=== PATIENT | male | born 1955 | race Caucasian/White ===

== ENCOUNTER 2018-04-03 11:23 | Inpatient (IN) | payer OTHER ==
[~2018-04-03] VITALS: Ht 190.5 cm; Wt 96.1 kg
[2018-04-03] MEDS ORDERED: DILTIAZEM BOLUS / DRIP IV STA (11:49)
[2018-04-03] MEDS ORDERED: SODIUM CHLORIDE 0.9% 1000ML 1,000 ML IV STA (11:49)
[2018-04-03 11:59] LABS: BASO % 0.4 %; BASO ABS # 0.05 K/uL (0-0.2); EOS % 1.9 %; EOS ABS # 0.22 K/uL (0-0.5); HEMATOCRIT 45.9 % (42-52); HEMOGLOBIN 16.6 g/dL (14.0-18.0); IG# 0.09 K/uL (0.00-0.02); LYMPH % 16.7 %; LYMPH ABS # 1.91 K/uL (1.2-3.4); MEAN CELL VOLUME 92.4 fL (80-100); MEAN CORPUSCULAR HEMOGLOBIN 33.4 pg (25-34); MEAN CORPUSCULAR HGB CONC 36.2 g/dl (32-36); MEAN PLATELET VOLUME 9.7 fL (7.4-10.4); MONO % 9.5 %; MONO ABS # 1.08 K/uL (0.11-0.59); NEUT % 70.7 %; NEUT ABS # 8.07 K/uL (1.4-6.5); PLATELET COUNT 296 K/uL (130-400); RED CELL DISTRIBUTION WIDTH CV 13.7 % (11.5-14.5); RED CELL DISTRIBUTION WIDTH SD 45.9 fL (36.4-46.3); WHITE BLOOD COUNT 11.42 K/uL (4.8-10.8)
[2018-04-03] MEDS ORDERED: DILTIAZEM BOLUS FROM BAG IV STA (12:00)
[2018-04-03] MEDS ORDERED: DILTIAZEM HCL INJ 125 MG in DEXTROSE 5% 100ML IV PRN (12:00)
[2018-04-03] MEDS ORDERED: GEMF600T5 PO ×2 (12:07)
[2018-04-03] MEDS ORDERED: NEBI10TA2 PO (12:07)
[2018-04-03] MEDS ORDERED: OXYC-594 PO (12:07)
--- NOTE | 2018-04-03 12:13 | DIAGNOSTIC IMAGING REPORT ---
CHEST ONE VIEW PORTABLE CLINICAL HISTORY: 62 years-old Male presenting with Chest Pain. TECHNIQUE: Portable upright AP view of the chest was obtained. COMPARISON: None. FINDINGS: Cardiomediastinal silhouette normal. Bandlike opacity in the left lung base. No other focal opacity. No large effusion. Lucency at the left apex with questionable pleural separation raises concern for pneumothorax. Degenerative changes of the thoracic spine. Upper abdomen normal. IMPRESSION: 1. Questionable small left apical pneumothorax. Dedicated PA and/or right lateral decubitus views could be obtained for confirmation as this may represent an overlapping rib shadow. 2. Left basilar atelectasis. Otherwise no convincing evidence of acute cardiopulmonary disease. The report will be called/faxed according to standard departmental protocol. Electronically signed by: Randy Leahy M.D. 04/03/2018 12:11 PM Dictated Date/Time: 04/03/2018 12:08 PM
[2018-04-03 12:24] LABS: CALCIUM 9.4 mg/dl (8.5-10.1); CKMB 1.2 ng/ml (0.5-3.6); CREATININE 1.18 mg/dl (0.60-1.40); POTASSIUM 4.1 mmol/L (3.5-5.1)
--- NOTE | 2018-04-03 13:30 | History and Physical ---
History & Physical Date & Time of Service: Apr 03, 2018 at 13:30 Chief Complaint: AFIB Primary Care Physician: No Doctor, Assigned History of Present Illness Source: patient, clinic records, hospital records Patient is a 62-year-old male with the PMH of paroxysmal A Fib, HTN, HLD and chronic back pain who presents with constant palpitations 4 days. Reports constant palpitations and rapid heart rate since last Tuesday. No lightheadedness, visual changes, near syncope, chest pain or shortness of breath. Has a remote history of A Fib and required cardioversion in 2003. Reports one other symptomatic episode of A Fib since then that spontaneously resolved. Is not on anticoagulation. Takes Bystolic for HTN. Denies history of heart disease, CVA or DVT/PE. Has 2-3 drinks a few days a week. No history of thyroid disease. Patient resides in both [place] and [place], and primary care provider is in [place]. Past Medical/Surgical History Medical Problems: (1) Chronic back pain Status: Chronic (2) HLD (hyperlipidemia) Status: Chronic (3) HTN (hypertension) Status: Chronic Surgical Problems: (1) History of appendectomy Status: Resolved (2) Hx of laminectomy Permanent Comment: H/o 4 laminectomies in the past at outside hospitals Status: Resolved Social History Smoking Status: Never Smoker Alcohol Use: socially (2-3 drinks a few times per week) Marital Status: Housing status: lives with significant other Occupational Status: employed Allergies Coded Allergies: No Known Allergies (Unverified , 04/03/18) Home Medications Scheduled Gemfibrozil (Lopid), 600 MG PO BID Nebivolol Hcl (Bystolic), 10 MG PO DAILY Scheduled PRN Oxycodone/Acetaminophen 10MG/325MG (Percocet 10MG/325MG), 1 TAB PO DAILY PRN for Pain Review of Systems Ten systems reviewed and negative except as noted in the HPI. Physical Exam Vital Signs Date Time Temp Pulse Resp B/P (MAP) Pulse Ox O2 Delivery O2 Flow Rate FiO2 04/03/18 13:16 100 20 126/83 99 Room Air 04/03/18 12:18 130 18 104/83 98 Room Air 04/03/18 11:42 145 04/03/18 11:37 Room Air 04/03/18 11:25 36.7 146 18 131/89 100 Room Air General Appearance: WD/WN, no apparent distress Head: normocephalic, atraumatic Eyes: normal inspection, PERRL, sclerae normal ENT: normal ENT inspection, hearing grossly normal, pharynx normal (mucous membranes moist) Neck: supple, thyroid normal, no JVD, trachea midline Respiratory/Chest: chest non-tender, lungs clear, normal breath sounds, no respiratory distress, no accessory muscle use Cardiovascular: no edema, no murmur, normal peripheral pulses, + tachycardia Abdomen/GI: non tender, soft, no organomegaly Extremities/Musculoskelatal: normal inspection, no calf tenderness, no pedal edema Neurologic/Psych: no motor/sensory deficits, alert, normal mood/affect, oriented x 3 Skin: normal color, warm/dry Diagnostics Laboratory Results Results Past 24 Hours Test 04/03/18 11:45 Range/Units White Blood Count 11.42 4.8-10.8 K/uL Red Blood Count 4.97 4.7-6.1 M/uL Hemoglobin 16.6 14.0-18.0 g/dL Hematocrit 45.9 42-52 % Mean Corpuscular Volume 92.4 80-100 fL Mean Corpuscular Hemoglobin 33.4 25-34 pg Mean Corpuscular Hemoglobin Concent 36.2 32-36 g/dl Platelet Count 296 130-400 K/uL Mean Platelet Volume 9.7 7.4-10.4 fL Neutrophils (%) (Auto) 70.7 % Lymphocytes (%) (Auto) 16.7 % Monocytes (%) (Auto) 9.5 % Eosinophils (%) (Auto) 1.9 % Basophils (%) (Auto) 0.4 % Neutrophils # (Auto) 8.07 1.4-6.5 K/uL Lymphocytes # (Auto) 1.91 1.2-3.4 K/uL Monocytes # (Auto) 1.08 0.11-0.59 K/uL Eosinophils # (Auto) 0.22 0-0.5 K/uL Basophils # (Auto) 0.05 0-0.2 K/uL RDW Standard Deviation 45.9 36.4-46.3 fL RDW Coefficient of Variation 13.7 11.5-14.5 % Immature Granulocyte % (Auto) 0.8 % Immature Granulocyte # (Auto) 0.09 0.00-0.02 K/uL Sodium Level 136 136-145 mmol/L Potassium Level 4.1 3.5-5.1 mmol/L Chloride Level 104 98-107 mmol/L Carbon Dioxide Level 24 21-32 mmol/L Anion Gap 8.0 3-11 mmol/L Blood Urea Nitrogen 14 7-18 mg/dl Creatinine 1.18 0.60-1.40 mg/dl Est Creatinine Clear Calc Drug Dose 78.6 ml/min Estimated GFR () 76.7 Estimated GFR (Non- 66.2 BUN/Creatinine Ratio 12.3 10-20 Random Glucose 101 70-99 mg/dl Calcium Level 9.4 8.5-10.1 mg/dl Total Creatine Kinase 52 39-308 U/L Creatine Kinase MB 1.2 0.5-3.6 ng/ml Creatine Kinase MB Ratio 2.3 0-3.0 Troponin I 0.016 0-0.045 ng/ml Diagnostic Radiology CXR (AP view) IMPRESSION: 1. Questionable small left apical pneumothorax. Dedicated PA and/or right lateral decubitus views could be obtained for confirmation as this may represent an overlapping rib shadow. 2. Left basilar atelectasis. Otherwise no convincing evidence of acute cardiopulmonary disease. CXR (decubitus views) IMPRESSION: 1. No pneumothorax. EKG Atrial flutter with 2:1 A-V conduction at 142 bpm. Impression Assessment and Plan Patient is a 62-year-old male with the PMH of paroxysmal A Fib, HTN, HLD and chronic back pain who presents with constant palpitations 4 days. A flutter with RVR -Palpitations but no lightheadedness, near syncope, SOB -EKG with A flutter with 2:1 AV conduction at 142 bpm -Given 10mg bolus of diltiazem in ED, started on diltiazem drip -HR initially improved to 100s but then returned to 140s -Heparin initiated for anticoagulation -Cardiology consulted -Lopressor 50mg PO given once -Lopressor 25mg PO scheduled Q6 -NPO after midnight in case NELLIE-guided cardioversion is indicated -Monitor on telemetry HTN -Normotensive -Hold home Bystolic while receiving scheduled Lopressor HLD -Continue Gemfibrozil Chronic back pain -H/o multiple laminectomies -Continue home Percocet daily PRN DVT Ppx: On IV heparin Code status: FULL PCP: Unassigned (PCP is in [place]) Dispo: Admitted to telemetry. Plan to return home once medically stable. Patient seen in collaboration with . Please see addendum. Attending Addendum Pt was seen and examined. Agreed with Reba CLAYTON assessment and plan. 62-year- old male with the PMH of paroxysmal A Fib, HTN, HLD and chronic back pain who presents with palpitation that started about 4 days ago. Pt said that symptoms seem to be similar to when he had Afib about 14 yrs ago. He said that he was cardiovert back then. Not on any anticoagulant. Denies any chest pain, fever, dizziness and SOB. General- No acute distress Head- atraumatic Eyes- PERRL, EOMI ENT- oropharynx clear Neck- supple, no JVD Lungs- clear to auscultation Heart- +Tachycardia, No murmur Abdomen- normal bowel sounds, soft Extremities- no calf tenderness Neuro- alert, oriented x 3; PERRL, EOMI Skin- warm & dry A/P A flutter with RVR EKG on admission showed atrial flutter with HR on the 140's Cardizem drip starting in the ER CHADS2-VASc score is 1 Continue heparin drip Cardiology consult Will give metoprolol 50mg x1, then D/C cardizem drip as per cardio Starting on metoprolol 25 mg q6h Plan to get NELLIE and cardioversion in am Check ECHO in am Will make NPO after midnight Please refer to Reba CLAYTON documentation for other problems MD Gurdeep Resuscitation Status VTE Prophylaxis Will order VTE Prophylaxis: Yes
[2018-04-03 14:22] VITALS: BP 121/87; PULSE 144; TEMP 37.3; O2SAT 100; Ht 190.5 cm; Wt 96.1 kg
[2018-04-03 14:27] LABS: INR 1.1 (0.9-1.1); PTT PATIENT 28.6 SECONDS (21.0-31.0)
[2018-04-03] MEDS ORDERED: METOPROLOL TARTRATE 50 MG TAB PO STA (15:01)
[2018-04-03] MEDS ORDERED: HEPARIN IV BOLUS 7,000 UNIT in SYRINGE 0 ML IV ONE (15:15)
--- NOTE | 2018-04-03 15:34 | DIAGNOSTIC IMAGING REPORT ---
CHEST DECUBS CLINICAL HISTORY: 62 years-old Male presenting with R lateral decub to evaluate for ? R pneumothorax. TECHNIQUE: Bilateral decubitus views were obtained. COMPARISON: AP chest x-ray from earlier today. FINDINGS: No pneumothorax. Lungs are clear. No pleural effusion. IMPRESSION: 1. No pneumothorax. Electronically signed by: Randy Leahy M.D. 04/03/2018 3:33 PM Dictated Date/Time: 04/03/2018 3:32 PM
[2018-04-03 15:38] VITALS: BP 111/73; PULSE 77; TEMP 37.2; O2SAT 96
[2018-04-03 16:00] VITALS: O2SAT 96
[2018-04-03] MEDS: HEPARIN 25,000 UNIT/500ML D5W 500 ML IV SCH (16:44)
--- NOTE | 2018-04-03 17:13 | CARDIOLOGY CONSULTATION ---
DATE OF CONSULTATION: 04/03/2018 REFERRING: Reba Garner. The patient has no local physician; sees a physician routinely in [place], [place]. HISTORY OF PRESENT ILLNESS: The patient is a 62-year-old male who carries an underlying history of hypertension, hyperlipidemia, chronic back pain with prior history of AFib flutter in 2003, ultimately undergone NELLIE-guided cardioversion at that time. He notes he has had no further recurrence of arrhythmias until approximately 3 days prior to presentation when he began experiencing sense of tachypalpitations that goes along with similar events. He has noted some sporadic episodes of nonsustained atrial arrhythmias which resolved spontaneously, but no sustained episodes. He noted symptoms; however, for this event carried throughout the weekend and ultimately was urged to seek medical care today. He denies associated chest pains, dizziness, lightheadedness, syncope, near syncope, orthopnea. Notes no worsening peripheral edema. Notes no fevers, chills or productive cough. Notes no melena, hematochezia, dysuria or hematuria. He has no history of diabetes mellitus, TIA or stroke. Notes no history of vascular disease. He is moderately active with limitations due to chronic back pain. ALLERGIES: None. MEDICATIONS: Bystolic 10 mg p.o. day and gemfibrozil 600 mg b.i.d. Medications prior also include a history of Percocet p.r.n. severe pain, used routinely and Lyrica recently begun. PAST SURGICAL HISTORY: Notable for laminectomy x4, history of past appendectomy and tonsillectomy. FAMILY HISTORY: Notable for heart disease in father. SOCIAL HISTORY: The patient is a nonsmoker. Drinks 2-3 drinks a few days per week socially. PHYSICAL EXAMINATION: VITAL SIGNS: Heart rates 110-140, in atrial flutter. Blood pressure is 121/87. HEENT: Normocephalic and atraumatic. NECK: Thick. There is no distinct jugular venous distention. There are no carotid bruits or ferrell waves present visible without jugular venous distention. LUNGS: Clear to auscultation. CARDIOVASCULAR: Regular with normal S1, S2. There is no murmur, gallop or rub. PMI is nondisplaced. ABDOMEN: Soft, nontender. There is no palpable splenomegaly. There is no hepatojugular reflux. EXTREMITIES: Without cyanosis or clubbing. There is no peripheral edema. There are intact distal pulses. DATA: EKG reveals typical atrial flutter with 2:1 AV conduction, rate 142. LABORATORY STUDIES: Sodium is 136, potassium is 4.1, chloride is 104, bicarbonate is 24, BUN is 14, creatinine is 1.1. TSH is 2.6. Troponin was 0.016. CK-MB fractions are normal. White cell count 11.4, hemoglobin 16.6. DIAGNOSTIC DATA: Chest x-ray revealed no overt infiltrate or edema. Echocardiogram is pending. IMPRESSION: A 62-year-old male with history of hypertension, dyslipidemia, chronic back pain, past single episode of sustained atrial fibrillation flutter in 2003 requiring NELLIE-guided cardioversion for conversion. His overall CHADS2-VASc score is 1. Discussed findings in detail with the patient. He is asymptomatic other than sense of heart pounding. IV diltiazem administered in the ER, only transiently slowed rhythm. PLAN: Will increase beta karen therapy to metoprolol 25 q. 6 with 50 mg to be given currently. Will hold, Bystolic and diltiazem. Anticoagulation has been initiated with IV heparin. Will likely be a transition to Eliquis during this hospital stay. Discussed findings if heart rate does not slow or spontaneously convert overnight, we will likely proceed with NELLIE-guided cardioversion in a.m. depending on results of transthoracic echo.
--- NOTE | 2018-04-03 17:20 | EMERGENCY ROOM VISIT NOTE ---
History Report prepared by John: Nasir Zhao Under the Supervision of: Eun SalazarO. First contact with patient: 11:37 Chief Complaint: IRREGULAR HEARTBEAT Stated Complaint: AFIB History of Present Illness The patient is a 62 year old male who presents to the Emergency Room with complaints of persistent A-fib beginning 3 days ago. He notes that he does feel his heart racing. Nothing that he can do to improve or worsening symptoms. The patient reports that he felt skipping beats beginning that afternoon, and notes that it seemed slightly improved the following morning. He reports a history of A-fib. He states that he is not on blood thinners or over the counter medications. He notes he has only had 2 episodes of this before in the past. He has no chest pain or shortness of breath at this time. Does admit to feeling fairly weak. No belly pain, nausea vomiting or diarrhea. No dysuria urgency or frequency. Patient has no other complaints at this time. PCP is in [place]. Source of History: patient Onset: 3 days ago Position: other (heart) Quality: other (A-fib) Timing: other (persistent) Associated Symptoms: + weakness, No chest pain, No SOB, No nausea, No vomiting, No abdominal pain, No diarrhea Review of Systems See HPI for pertinent positives & negatives. A total of 10 systems reviewed and were otherwise negative. Past Medical & Surgical Medical Problems: (1) Chronic back pain (2) HLD (hyperlipidemia) (3) HTN (hypertension) Surgical Problems: (1) History of appendectomy (2) Hx of laminectomy Family History Patient reports no known family medical history. Social History Smoking Status: Never Smoker Current/Historical Medications Scheduled Gemfibrozil (Lopid), 600 MG PO BID Nebivolol Hcl (Bystolic), 10 MG PO DAILY Scheduled PRN Oxycodone/Acetaminophen 10MG/325MG (Percocet 10MG/325MG), 1 TAB PO DAILY PRN for Pain Allergies Coded Allergies: No Known Allergies (Unverified , 04/03/18) Physical Exam Vital Signs Date Time Temp Pulse Resp B/P (MAP) Pulse Ox O2 Delivery O2 Flow Rate FiO2 04/03/18 12:18 130 18 104/83 98 Room Air 04/03/18 11:42 145 04/03/18 11:37 Room Air 04/03/18 11:25 36.7 146 18 131/89 100 Room Air Physical Exam GENERAL: Sitting up in bed, alert, well appearing, well nourished, no distress, non-toxic EYE EXAM: normal conjunctiva. OROPHARYNX: no exudate, no erythema, lips, buccal mucosa, and tongue normal and mucous membranes are moist NECK: supple, no nuchal rigidity, no adenopathy, non-tender LUNGS: Clear to auscultation. Normal chest wall mechanics HEART: Tachycardic and irregularly irregular, S1 normal and S2 normal ABDOMEN: abdomen soft, non-tender, normo-active bowel sounds, no masses, no rebound or guarding. BACK: Back is symmetrical on inspection and there is no deformity, no midline tenderness, no CVA tenderness. SKIN: no rashes and no bruising UPPER EXTREMITIES: upper extremities are grossly normal. LOWER EXTREMITIES: No pitting edema. Calves are equal bilateral NEURO EXAM: Normal sensorium, cranial nerves II-XII grossly intact, normal speech, no gross weakness of arms, no gross weakness of legs. Medical Decision & Procedures ER Provider Diagnostic Interpretation: Radiology results as stated below per my review and the radiologist's interpretation: CHEST ONE VIEW PORTABLE CLINICAL HISTORY: 62 years-old Male presenting with Chest Pain. TECHNIQUE: Portable upright AP view of the chest was obtained. COMPARISON: None. FINDINGS: Cardiomediastinal silhouette normal. Bandlike opacity in the left lung base. No other focal opacity. No large effusion. Lucency at the left apex with questionable pleural separation raises concern for pneumothorax. Degenerative changes of the thoracic spine. Upper abdomen normal. IMPRESSION: 1. Questionable small left apical pneumothorax. Dedicated PA and/or right lateral decubitus views could be obtained for confirmation as this may represent an overlapping rib shadow. 2. Left basilar atelectasis. Otherwise no convincing evidence of acute cardiopulmonary disease. The report will be called/faxed according to standard departmental protocol. Electronically signed by: Randy Leahy M.D. 04/03/2018 12:11 PM Dictated Date/Time: 04/03/2018 12:08 PM Laboratory Results Test 04/03/18 11:45 Immature Granulocyte % (Auto) 0.8 % White Blood Count 11.42 K/uL (4.8-10.8) Red Blood Count 4.97 M/uL (4.7-6.1) Hemoglobin 16.6 g/dL (14.0-18.0) Hematocrit 45.9 % (42-52) Mean Corpuscular Volume 92.4 fL (80-100) Mean Corpuscular Hemoglobin 33.4 pg (25-34) Mean Corpuscular Hemoglobin Concent 36.2 g/dl (32-36) Platelet Count 296 K/uL (130-400) Mean Platelet Volume 9.7 fL (7.4-10.4) Neutrophils (%) (Auto) 70.7 % Lymphocytes (%) (Auto) 16.7 % Monocytes (%) (Auto) 9.5 % Eosinophils (%) (Auto) 1.9 % Basophils (%) (Auto) 0.4 % Neutrophils # (Auto) 8.07 K/uL (1.4-6.5) Lymphocytes # (Auto) 1.91 K/uL (1.2-3.4) Monocytes # (Auto) 1.08 K/uL (0.11-0.59) Eosinophils # (Auto) 0.22 K/uL (0-0.5) Basophils # (Auto) 0.05 K/uL (0-0.2) Immature Granulocyte # (Auto) 0.09 K/uL (0.00-0.02) Prothrombin Time 11.4 SECONDS (9.0-12.0) Prothromb Time International Ratio 1.1 (0.9-1.1) Total Creatine Kinase 52 U/L (39-308) Creatine Kinase MB 1.2 ng/ml (0.5-3.6) Creatine Kinase MB Ratio 2.3 (0-3.0) Troponin I 0.016 ng/ml (0-0.045) Thyroid Stimulating Hormone (TSH) 2.690 uIu/ml (0.300-4.500) Hepatitis C Antibody Screen NEG (NEG) Laboratory results per my review. Medications Administered Medications (Trade) Dose Ordered Sig/Macie Route Start Time Stop Time Status Last Admin Dose Admin Sodium Chloride 1,000 ml @ 999 mls/hr Q1H1M STAT IV 04/03/18 11:49 04/03/18 12:49 DC 04/03/18 11:54 999 MLS/HR Diltiazem HCl 125 mg/Dextrose 125 ml @ 0 mls/hr Q0M PRN IV 04/03/18 12:00 04/03/18 15:06 DC 04/03/18 12:16 5 MLS/HR Diltiazem HCl (Cardizem Bolus From Bag) 10 mg NOW STAT IV 04/03/18 12:00 04/03/18 12:01 DC 04/03/18 12:00 10 MG ECG Per My Interpretation Indication: weakness Rate (beats per minute): 144 Rhythm: atrial flutter Findings: other (normal axis, nonspecific ST inferior changes) Comparison ECG Date: no prior available ED Course ED COURSE: Vital signs were reviewed and showed tachycardia The patients medical record was reviewed The above diagnostic studies were performed and reviewed. ED treatments and interventions as stated above. 1142: The patient was evaluated in room B6. A complete history and physical examination was performed. 1229: I spoke with Reba Garner PA-C: [facility]. She will reevaluate the patient for hospitalization. Based on the patients age, coexisting illnesses, exam and lab findings the decision to treat as an inpatient was made. The patient remained stable while under my care. The patient will be evaluated for further management. Medical Decision Differential diagnoses includes but is not limited to acute coronary syndrome, myocardial infarction, pericarditis, pulmonary embolus, aortic dissection, pneumonia, pneumothorax, musculoskeletal, shingles, esophageal. Patient is a 62-year-old male who has a history of A. fib who presents to the ER in atrial flutter with RVR with a heart rate in the 140s. Symptoms have been present since this past Tuesday. No other exacerbating or remitting factors with the exception of mild weakness. CBC, BMP troponin and TSH was negative. Patient was given a bolus of Cardizem and placed on Cardizem drip. Heart rate trended down to the low 100s-90s from 140. Patient still remains in atrial flutter. He was discussed with internal medicine and was admitted for further workup. Medication Reconcilliation Current Medication List: was personally reviewed by me Blood Pressure Screening Patient's blood pressure: Normal blood pressure Blood pressure disposition: Did not require urgent referral Consults Time Called: 1224 Consulting Physician: Reba Garner PA-C: [facility] Returned Call: 1229 I spoke with Reba Garner PA-C: Trev Ramona. She will reevaluate the patient for hospitalization Impression Primary Impression: Atrial flutter with rapid ventricular response Critical Care I have personally spent 35 minutes of critical care time in the direct management of this patient. This includes bedside care, interpretation of diagnostic studies, and testing, discussion with consultants, patient, and family members, and other required patient management activities. This 35 minutes is in excess of all separately billable procedures. Scribe Attestation The scribe's documentation has been prepared under my direction and personally reviewed by me in its entirety. I confirm that the note above accurately reflects all work, treatment, procedures, and medical decision making performed by me. Departure Information Patient Instructions [facility]
[2018-04-03 19:57] VITALS: BP 113/72; PULSE 80; TEMP 37.2; O2SAT 98
[2018-04-03] MEDS: METOPROLOL TARTRATE 25 MG TAB PO SCH ×2 (20:35→23:52)
[2018-04-03] MEDS: GEMFIBROZIL 600 MG TAB PO SCH (20:35)
[2018-04-03 23:50] VITALS: BP 111/74; PULSE 79; TEMP 37.1; O2SAT 99
[2018-04-03 23:52] LABS: PTT PATIENT 69.7 SECONDS (21.0-31.0)
[2018-04-03] MEDS: OXYCODONE/ACETAMINOPHEN 10/325MG TAB PO PRN (23:52)
[2018-04-04] VITALS (21 sets, daily range): BP systolic 92–134; BP diastolic 65–93; PULSE 77–147; TEMP 36.8–37.3; O2SAT 97–100
[2018-04-04] MEDS: METOPROLOL TARTRATE 25 MG TAB PO SCH ×2 (05:46→12:16)
[2018-04-04 05:48] LABS: MEAN CELL VOLUME 92.4 fL (80-100); MEAN CORPUSCULAR HEMOGLOBIN 32.1 pg (25-34); MEAN CORPUSCULAR HGB CONC 34.8 g/dl (32-36); MEAN PLATELET VOLUME 10.1 fL (7.4-10.4); PLATELET COUNT 218 K/uL (130-400); RED CELL DISTRIBUTION WIDTH CV 13.5 % (11.5-14.5); RED CELL DISTRIBUTION WIDTH SD 45.5 fL (36.4-46.3); WHITE BLOOD COUNT 8.19 K/uL (4.8-10.8)
[2018-04-04 06:17] LABS: CALCIUM 9.2 mg/dl (8.5-10.1); CREATININE 0.85 mg/dl (0.60-1.40); POTASSIUM 4.5 mmol/L (3.5-5.1)
[2018-04-04 06:23] LABS: PTT PATIENT 67.6 SECONDS (21.0-31.0)
[2018-04-04] MEDS: HEPARIN 25,000 UNIT/500ML D5W 500 ML IV SCH (07:51)
[2018-04-04] MEDS: GEMFIBROZIL 600 MG TAB PO SCH (07:52)
--- NOTE | 2018-04-04 08:45 | ECHOCARDIOGRAM REPORT ---
*NOTICE TO RECEIVING LIBERTARIAN AGENCY This information is strictly Confidential and protected under [place] law. [place] law prohibits you from making any further disclosure of this information unless further disclosure is expressly permitted by the written consent of the person to whom it pertains or is authorized by law. A general authorization for the release of medical or other information is not sufficient for this purpose. Hospital accepts no responsibility if the information is made available to any other person, INCLUDING THE PATIENT. Interpretation Summary * Name: ROBE SHANKS Study Date: 04/03/2018 03:52 PM BP: 118/84 mmHg * Patient Location: [facility] HR: 78 * : 1955 (M/d/yyyy) Gender: Male Height: 74 in * Age: 62 yrs Ethnicity: CA Weight: 213 lb * Ordering Physician: Reba Garner * Performed By: Tracy Santana RDCS * * Reason For Study: A-FIB * BSA: 2.2 m2 * -- Conclusions -- * The left ventricle is normal in size. * There is mild concentric left ventricular hypertrophy. * Left ventricular systolic function is normal. * The left ventricular wall motion is normal. * Ejection Fraction = 65-70%. * There is no significant valvular disease Procedure Details * A complete two-dimensional transthoracic echocardiogram was performed (2D, M-mode, Doppler and color flow Doppler). * The study was technically difficult. * A contrast injection of Definity was performed to improve assessment of LV function. * Contrast was injected into an intravenous site in the left arm. * One vial of Definity ultrasound contrast was diluted in normal saline to a total volume of 10 ml. A total of '2.5' ml of solution was administered during imaging. * Lot # [id number] of Definity utilized for procedure. * Expiration date 03/09. Left Ventricle * The left ventricle is normal in size. * There is mild concentric left ventricular hypertrophy. * Ejection Fraction = 65-70%. * Left ventricular systolic function is normal. * The left ventricular wall motion is normal. Right Ventricle * The right ventricle is normal in size and function. Atria * The left atrial size is normal. * Right atrial size is normal. * No ASD detected; PFO is not assessed. Mitral Valve * The mitral valve anatomy is normal. * There is no mitral valve stenosis. * There is trace mitral regurgitation. Tricuspid Valve * The tricuspid valve anatomy is normal. * There is no tricuspid stenosis. * There is trace tricuspid regurgitation. Aortic Valve * The aortic valve is trileaflet. * No hemodynamically significant valvular aortic stenosis. * No aortic regurgitation is present. Pulmonic Valve * The pulmonic valve is not well visualized. Great Vessels * The aortic root is normal size. Pericardium/Pleural * There is no pericardial effusion. Great Vessels * Normal inferior vena cava diameter and respiratory variation suggests normal central venous pressure. MMode 2D Measurements and Calculations IVSd 0.95 cm IVSs 1.6 cm LVIDd 5.1 cm LVIDs 3.2 cm LVPWd 1.3 cm LVPWs 1.7 cm IVS/LVPW 0.73 FS 36.4 % EDV(Teich) 121.2 ml ESV(Teich) 41.4 ml EF(Teich) 65.8 % EDV(cubed) 129.0 ml ESV(cubed) 33.2 ml EF(cubed) 74.3 % % IVS thick 63.2 % % LVPW thick 27.6 % LV mass(C)d 218.9 grams LV mass(C)dI 98.1 grams/m\S\2 LV mass(C)s 195.1 grams LV mass(C)sI 87.4 grams/m\S\2 SV(Teich) 79.8 ml SI(Teich) 35.8 ml/m\S\2 SV(cubed) 95.9 ml SI(cubed) 42.9 ml/m\S\2 asc Aorta Diam 2.9 cm LVOT diam 2.3 cm LVOT area 4.2 cm\S\2 LVAd ap4 31.2 cm\S\2 LVLd ap4 8.4 cm EDV(MOD-sp4) 93.8 ml EDV(sp4-el) 98.8 ml LVAs ap4 16.1 cm\S\2 LVLs ap4 6.6 cm ESV(MOD-sp4) 32.5 ml ESV(sp4-el) 33.3 ml EF(MOD-sp4) 65.4 % EF(sp4-el) 66.2 % LVAd ap2 30.9 cm\S\2 LVLd ap2 8.1 cm EDV(MOD-sp2) 96.0 ml EDV(sp2-el) 100.4 ml LVAs ap2 16.0 cm\S\2 LVLs ap2 6.9 cm ESV(MOD-sp2) 32.5 ml ESV(sp2-el) 31.8 ml EF(MOD-sp2) 66.1 % EF(sp2-el) 68.3 % LVLd %diff -3.76 % EDV(MOD-bp) 95.7 ml LVLs %diff 3.4 % ESV(MOD-bp) 32.5 ml EF(MOD-bp) 66.0 % SV(MOD-sp4) 61.3 ml SI(MOD-sp4) 27.5 ml/m\S\2 SV(MOD-sp2) 63.4 ml SI(MOD-sp2) 28.4 ml/m\S\2 SV(MOD-bp) 63.2 ml SI(MOD-bp) 28.3 ml/m\S\2 SV(sp4-el) 65.4 ml SI(sp4-el) 29.3 ml/m\S\2 SV(sp2-el) 68.6 ml SI(sp2-el) 30.7 ml/m\S\2 Doppler Measurements and Calculations MV E max whitney 93.4 cm/sec MV A max whitney 45.2 cm/sec MV E/A 2.1 MV dec time 0.17 sec Ao V2 max 97.5 cm/sec Ao max PG 3.8 mmHg Ao max PG (full) 0.39 mmHg ELIZABETH(V,A) 4.0 cm\S\2 ELIZABETH(V,D) 4.0 cm\S\2 LV V1 max PG 3.4 mmHg LV V1 max 92.3 cm/sec PA V2 max 58.8 cm/sec PA max PG 1.4 mmHg
--- NOTE | 2018-04-04 10:08 | PROGRESS NOTE ---
DATE: 04/04/2018 Patient seen and examined. Chart, medications, telemetry reviewed. SUBJECTIVE: Patient remains in atrial flutter with variable AV conduction, generally in the 70s and 80s when sitting quietly though with any movement and activity rapidly increases to 2:1 conduction. Notes no chest pain, shortness of breath, dizziness or lightheadedness. Echocardiogram today demonstrates preserved LV systolic function. He is anticoagulated with heparin. PHYSICAL EXAMINATION: VITAL SIGNS: Heart rate is 100, blood pressure is 129/85. HEENT: Normocephalic and atraumatic. Nares without discharge. Throat was clear. NECK: Supple without thyromegaly, lymphadenopathy, JVD or bruit. LUNGS: Clear to auscultation. CARDIOVASCULAR: Regularly irregular. There is no S3 gallop. ABDOMEN: Soft, nontender. EXTREMITIES: Without cyanosis or clubbing. There is no peripheral edema. IMPRESSION AND PLAN: A 62-year-old male with paroxysmal atrial flutter who presents with persistent atrial flutter this admission with difficult to control ventricular response rates. Anticipate NELLIE cardioversion later today. Patient has no oral lesions or difficulty swallowing. Notes no anesthesia complications. Uvula and posterior palate are easily visible. Procedure and risks have been explained in detail with the patient including risks of NELLIE and risks of synchronized electrical cardioversion. Patient is agreeable to plan, has been n.p.o. since midnight. Anticipate procedure later this morning.
--- NOTE | 2018-04-04 10:29 | Progress Note ---
Medicine Progress Note Date & Time of Visit: Apr 04, 2018 at 10:03. Subjective Pt was seen and examined Lying in bed with no distress Pt said that he feels ok He said that he can feel his hear rate going fast Cardio is planning to do NELLIE and cardiovert him today Denies any chest pain, dizziness and SOB Objective Last 8 Hrs Date Time Temp Pulse Resp B/P (MAP) Pulse Ox O2 Delivery O2 Flow Rate FiO2 04/04/18 08:00 Room Air 04/04/18 07:05 37.0 101 18 129/85 (100) 99 Room Air 04/04/18 05:46 89 121/81 (94) 04/04/18 02:55 36.9 87 16 118/84 (95) 97 Room Air Physical Exam: General- No acute distress Head- atraumatic Eyes- PERRL, EOMI ENT- oropharynx clear Neck- supple, no JVD Lungs- clear to auscultation Heart- No murmur, tachy Abdomen- normal bowel sounds, soft Extremities- no calf tenderness Neuro- alert, oriented x 3; PERRL, EOMI; no facial palsy Skin- warm & dry Laboratory Results: Last 24 Hours Test 04/03/18 11:45 04/03/18 22:56 04/04/18 05:26 White Blood Count 11.42 K/uL 8.19 K/uL Red Blood Count 4.97 M/uL 4.98 M/uL Hemoglobin 16.6 g/dL 16.0 g/dL Hematocrit 45.9 % 46.0 % Mean Corpuscular Volume 92.4 fL 92.4 fL Mean Corpuscular Hemoglobin 33.4 pg 32.1 pg Mean Corpuscular Hemoglobin Concent 36.2 g/dl 34.8 g/dl Platelet Count 296 K/uL 218 K/uL Mean Platelet Volume 9.7 fL 10.1 fL Neutrophils (%) (Auto) 70.7 % Lymphocytes (%) (Auto) 16.7 % Monocytes (%) (Auto) 9.5 % Eosinophils (%) (Auto) 1.9 % Basophils (%) (Auto) 0.4 % Neutrophils # (Auto) 8.07 K/uL Lymphocytes # (Auto) 1.91 K/uL Monocytes # (Auto) 1.08 K/uL Eosinophils # (Auto) 0.22 K/uL Basophils # (Auto) 0.05 K/uL RDW Standard Deviation 45.9 fL 45.5 fL RDW Coefficient of Variation 13.7 % 13.5 % Immature Granulocyte % (Auto) 0.8 % Immature Granulocyte # (Auto) 0.09 K/uL Prothrombin Time 11.4 SECONDS Prothromb Time International Ratio 1.1 Activated Partial Thromboplast Time 28.6 SECONDS 69.7 SECONDS 67.6 SECONDS Partial Thromboplastin Ratio 1.1 2.7 2.6 Sodium Level 136 mmol/L 139 mmol/L Potassium Level 4.1 mmol/L 4.5 mmol/L Chloride Level 104 mmol/L 104 mmol/L Carbon Dioxide Level 24 mmol/L 27 mmol/L Anion Gap 8.0 mmol/L 7.0 mmol/L Blood Urea Nitrogen 14 mg/dl 11 mg/dl Creatinine 1.18 mg/dl 0.85 mg/dl Est Creatinine Clear Calc Drug Dose 78.6 ml/min 109.1 ml/min Estimated GFR () 76.7 109.0 Estimated GFR (Non- 66.2 94.0 BUN/Creatinine Ratio 12.3 13.4 Random Glucose 101 mg/dl 91 mg/dl Calcium Level 9.4 mg/dl 9.2 mg/dl Total Creatine Kinase 52 U/L Creatine Kinase MB 1.2 ng/ml Creatine Kinase MB Ratio 2.3 Troponin I 0.016 ng/ml Thyroid Stimulating Hormone (TSH) 2.690 uIu/ml Hepatitis C Antibody Screen NEG Magnesium Level 1.8 mg/dl Assessment & Plan Patient is a 62-year-old male with the PMH of paroxysmal A Fib, HTN, HLD and chronic back pain who presents with constant palpitations 4 days. A flutter with RVR EKG on admission showed atrial flutter with HR on the 140's Was starting on cardizem drip in the ER that was D/C HR this morning elevated back in the 140's Continue metoprolol 25mg q6hr CHADS2-VASc score is 1 Continue heparin drip Cardiology on board Plan to get NELLIE done today with cardioversion Keep NPO Addendum: Had NELLIE done with successful cardioversion Case discussed with cardio recommended to discharge home on Metoprolol and eliquis Follow up with cardiology in 3 to 4 weeks. Ok from cardiology standpoint to discharge home. ECHO * The left ventricle is normal in size. * There is mild concentric left ventricular hypertrophy. * Left ventricular systolic function is normal. * The left ventricular wall motion is normal. * Ejection Fraction = 65-70%. * There is no significant valvular disease HTN BP stable On Metoprolol 25mg q6h HLD Continue Gemfibrozil Chronic back pain H/o multiple laminectomies Continue home Percocet daily PRN DVT Ppx: On IV heparin Code status: FULL CODE Dispo: Continue monitor in telemetry Current Inpatient Medications: Current Inpatient Medications Medications (Trade) Dose Ordered Sig/Macie Route Start Time Stop Time Status Last Admin Dose Admin Gemfibrozil (Lopid Tab) 600 mg BID PO 04/03/18 21:00 05/03/18 20:59 04/04/18 07:52 600 MG Oxycodone/ Acetaminophen (Percocet 10-325MG Tab) 1 tab DAILY PRN PO 04/03/18 14:00 04/17/18 13:59 04/03/18 23:52 1 TAB Heparin Sodium/ Dextrose 500 ml @ 32 mls/hr [id number] IV 04/03/18 15:30 05/03/18 15:29 04/04/18 07:51 32 MLS/HR Metoprolol Tartrate (Lopressor Tab) 25 mg Q6 PO 04/03/18 20:00 05/03/18 19:59 04/04/18 05:46 25 MG
[2018-04-04] MEDS ORDERED: MIDAZOLAM HCL 1 MG/ML 2ML VIAL ONE ×3 (11:09→11:28)
[2018-04-04] MEDS ORDERED: FENTANYL CITRATE INJ 50 MCG/1 ML 2 ML VIAL ONE (11:10)
--- NOTE | 2018-04-04 11:12 | Pre Sedation Assessment ---
Pre Sedation Assessment General Date of Sedation: Apr 04, 2018. Vital Signs Past 12 Hours Date Time Temp Pulse Resp B/P (MAP) Pulse Ox O2 Delivery O2 Flow Rate FiO2 04/04/18 10:23 37.3 147 18 118/65 (82) 98 Room Air 04/04/18 08:00 Room Air 04/04/18 07:05 37.0 101 18 129/85 (100) 99 Room Air 04/04/18 05:46 89 121/81 (94) 04/04/18 02:55 36.9 87 16 118/84 (95) 97 Room Air 04/03/18 23:59 Room Air 04/03/18 23:50 37.1 79 18 111/74 (86) 99 Room Air Review Cardiovascular: no murmur, + irregularly irregular, + abnormal rate Lungs: lungs clear Pre-Sedation Airway Assessment Smoking Status: Never Smoker Oral Cavity: WNL Mallampati Classification: Class II (Sft palate,uvula,fauces visib.) ASA Classification: Class III Procedure Planning Contraindications for Sedation: None Current Medications Reviewed: Yes Notes The planned sedation has been discussed with the patient. Informed Consent was obtained. I have identified the patient, determined the appropriateness of sedation and have assessed the patient immediately prior to the procedure. All medicine(s) and interventions are by my order.
[2018-04-04] MEDS ORDERED: METOPROLOL TARTRATE 1 MG/ML VIAL ONE (11:40)
--- NOTE | 2018-04-04 11:52 | Cardiology Procedure Brief Nt ---
Preliminary Cardiology Note Procedure Date Apr 04, 2018. Pre-Procedure Diagnosis Atrial flutter Post-Procedure Diagnosis Successful NELLIE guided synchronized electrical cardioversion Procedure(s) Performed NELLIE guided synchronized electrical cardioversion Order Schedule Clerk Andres Special Duty Nurse(s) None Estimated Blood Loss None Preliminary Findings After informed consent obtained and TIMEOUT performed, patient was sedated and NELLIE performed. No contraindication for synchronized electrical cardioversion was observed and probe was removed. Ptient was repositioned and in same setting underwent synchronized electrical cardioversion using single 100 J biphasic shock with successful conversion. Post procedure patient aroused and tolerated well EKG Sinus rhythm with normal QTc Recommendations Oral anticoagulation and continued med therapy Fluids (cc crystalloids) 800 Specimens None Anesthesia Start 1117 Stop 1150 Complication(s) None Disposition PCU
[2018-04-04] MEDS ORDERED: APIXABAN 5 MG TAB PO ONE (11:57)
[2018-04-04] MEDS ORDERED: [UNRECOGNIZED DRUG - REMARK] ONE (13:00)
--- NOTE | 2018-04-04 13:43 | CARDIOVERSION ---
DATE OF OPERATION: 04/04/2018 SYNCHRONIZED ELECTRICAL CARDIOVERSION REPORT INDICATIONS: Atrial flutter with variable AV block, symptomatic. PROCEDURE: NELLIE-guided synchronized electrical cardioversion. BRIEF HISTORY: Patient is a 62-year-old male with history of paroxysmal atrial flutter presented with atrial flutter with elevated ventricular response, rate tachy, palpitations symptomatic. Medication and therapy slowed the heart rate only minimally. He is subsequently referred for NELLIE-guided protocol. DESCRIPTION OF PROCEDURE: After procedure and risks were explained in detail, informed consents were obtained. Appropriate time-outs were performed and patient was sedated with continuous heart rate, blood pressure and oxygen saturation monitoring. Procedural start time was 1117 and stop time was 1150. For the procedure, patient received total of 10 mg IV Versed at incremental dosing and 100 mcg IV fentanyl. Transesophageal echocardiography was performed after probe was passed uneventfully through bite block. Posterior oropharynx had been anesthetized with topical Cetacaine prior to procedure. Images were obtained and there were no contraindications to proceeding with synchronized electrical cardioversion. Patient was then repositioned and in the same setting underwent single 100-joule biphasic shock with successful conversion to sinus and sinus tachycardia. Patient received 5 mg IV metoprolol to aid in rate control post-conversion. Total amount of fluid received was 800 mL of normal saline. Post-procedure, patient aroused, having tolerated well. EKG demonstrating sinus rhythm with normal QT corrected interval. RECOMMENDATIONS: Patient will be converted from IV heparin to oral Eliquis, continued on beta karen for rhythm control. I attest to the content of the Intraoperative Record and any orders documented therein. Any exception s are noted below.
--- NOTE | 2018-04-04 15:02 | PROGRESS NOTE ---
DATE: 04/04/2018 SUBJECTIVE: The patient seen and examined. Chart, medications, telemetry reviewed. The patient is seen. Post-synchronized cardioversion performed earlier this morning after NELLIE guidance performed demonstrating no intracardiac thrombus or contraindications to procedure. Study performed uneventfully with 100 joule synchronized shock and conversion to sinus rhythm. Currently comfortable and in sinus rhythm with rare ventricular ectopy on monitor. RECOMMENDATIONS: The patient has been converted from heparin to apixaban. We will discontinue previously prescribed Bystolic and begin on metoprolol 50 mg twice per day for rhythm control. The patient may be discharged with planned followup with cardiology in 3-4 weeks at [facility].
[2018-04-04] MEDS ORDERED: APIX1TAB3 PO (15:06)
[2018-04-04] MEDS ORDERED: METO50TA16 PO (15:06)
--- NOTE | 2018-04-04 15:16 | Discharge Instructions ---
Discharge Instructions Date of Service Apr 04, 2018. Admission Reason for Admission: Atrial Flutter W/ Rvr Discharge Discharge Diagnosis / Problem: Atrial Flutter with RVR Discharge Goals Goal(s): Decrease discomfort, Improve function, Improve disease control Activity Recommendations Activity Limitations: resume your previous activity (as tolerated) . Instructions / Follow-Up Instructions / Follow-Up Please call your primary care provider to schedule a follow up appointment within 1 week for follow up Follow up with cardiology Dr. Campos within 3 to 4 weeks at [facility] [place]. (The office will contact you, Please call if you don't hear from the office within 1 week) Continue Eliquis twice a day Fall precaution Avoid any high level activity to prevent the risks of Fall. Seek medical attention if you develop any abnormal bleeding such as blood in your stools and your urine. Medication Instructions: Eliquis Your condition is typically treated with an anticoagulant. Anticoagulants will thin your blood to help prevent new clots. * You should take her medication exactly as directed. * Never skip a dose. * Never take a double dose. If you miss a dose, take it as soon as you remember. Call your Primary Care doctor if you experience any of the following: * Swelling or Pain in your leg * Sudden, continuous pain deep in a muscle * Pain that worsens when you are active or when you stand still for a long time * Chest Pain * Sudden Shortness of Breath * Rapid or pounding heart beat * Fainting * Dizziness * Cough with blood or bloody sputum * Sweating more than normal * Bruises * Heavy or uncontrolled bleeding * Blood in your urine, stool or vomit * Black or tarry stools Follow Up: It is important for you to keep your follow up appointments with your medical provider. Current Hospital Diet Patient's current hospital diet: AHA Diet (Heart Healthy) Discharge Diet Recommended Diet: AHA Diet (Heart Healthy) Pending Studies Studies pending at discharge: no Medical Emergencies . Who to Call and When: Medical Emergencies: If at any time you feel your situation is an emergency, please call 911 immediately. . Non-Emergent Contact Non-Emergency issues call your: Primary Care Provider, [employer] Machine Operator Call Non-Emergent contact if: you have any medication questions . . "Provider Documentation" section prepared by Afshin Mackenzie. .
[2018-04-04] MEDS: OXYCODONE/ACETAMINOPHEN 10/325MG TAB PO PRN (15:45)
--- NOTE | 2018-04-04 16:39 | TEE ---
*NOTICE TO RECEIVING LIBERTARIAN AGENCY This information is strictly Confidential and protected under [place] law. [place] law prohibits you from making any further disclosure of this information unless further disclosure is expressly permitted by the written consent of the person to whom it pertains or is authorized by law. A general authorization for the release of medical or other information is not sufficient for this purpose. Hospital accepts no responsibility if the information is made available to any other person, INCLUDING THE PATIENT. Interpretation Summary * Name: ROBE SHANKS Study Date: 04/04/2018 11:09 AM BP: 110/85 mmHg * Patient Location: [facility] HR: 143 * : 1955 (M/d/yyyy) Gender: Male Height: 75 in * Age: 62 yrs Ethnicity: [place] Weight: 211 lb * Ordering Physician: Eloy Campos MD, [facility] * Performed By: Debbie Brennan RCS * * Reason For Study: A-FLUTTER WITH RVR * BSA: 2.2 m2 * -- Conclusions -- * There are no cardiac contraindications to proceeding with synchronized electrical cardioversion Procedure Details * NELLIE probe #3 used for procedure. TIME OUT: 1117 PROBE IN: 1130 PROBE OUT: 1135 SHOCK TIME: 1137 * The study was performed in Cardiac Catheterization Lab. * Time out was conducted by the physician, nurse, and medical administrative technician with positive identification of patient and procedure. * Informed consent for Transesophageal Echocardiogram was obtained prior to the procedure. * An intravenous line was placed. A topical anesthetic agent was used for oropharangeal anesthesia. A bite block was inserted. * The patient's vital signs, including blood pressure, heart rate, pulse oximetry and cardiac rhythm were monitored throughout the procedure . * Fentanyl 100 mcg was administered for procedural sedation. * Midazolam 10 mg administered for sedation. * The posterior oropharynx was anesthetized using a topical anesthetic spray. A bite guard was inserted. * A multifrequency, multiplane transesopheageal echocardiographic endoscope was inserted and manipulated in the standard fashion to achieve multiplane views. * The transesophageal probe was passed without difficulty. * The patient tolerated the procedure well without evidence of orophangeal or esophageal trauma. * A 2D transesophageal echocardiogram with spectral and color flow Doppler was performed. Left Ventricle * The left ventricle is normal in size. * There is no thrombus. * There is mild concentric left ventricular hypertrophy. * Ejection Fraction = 55-60%. * The left ventricular wall motion is normal. Right Ventricle * The right ventricular systolic function is normal. Atria * No thrombus is detected in the left atrial appendage. * Left atrium is upper limits of normal in size without spontaneous contrast. Left atrial appendage appears appropriately contractile * Right atrial size is normal. * The interatrial septum is intact with no evidence for an atrial septal defect. Mitral Valve * The mitral valve is normal. Tricuspid Valve * The tricuspid valve anatomy is normal. Aortic Valve * The aortic valve is trileaflet. * Aortic valve sclerosis mild, without significant aortic valvular stenosis. * There is no significant aortic regurgitation. Pulmonic Valve * The pulmonic valve is not well seen, but is grossly normal. * There is no pulmonic valvular regurgitation. Great Vessels * The aortic root is normal size. * Ascending aorta of normal dimension * There is no atheromatous disease in the descending thoracic aorta Pericardium * There is no pericardial effusion.
[2018-04-04] MEDS ORDERED: METOPROLOL TARTRATE 50 MG TAB PO SCH (17:00)
[2018-04-04] MEDS ORDERED: APIXABAN 5 MG TAB PO SCH (21:00)
--- NOTE | 2018-04-05 07:39 | Discharge Summary ---
Discharge Summary Date of Service Apr 05, 2018. Discharge Summary Admission Date: Apr 03, 2018 at 13:03 Discharge Date: Apr 04, 2018 Discharge Disposition: Home Principal Diagnosis: A flutter with RVR Secondary Diagnoses/Problems: Chronic back pain HTN DLP Procedures: Preliminary Cardiology Note Procedure Date Apr 04, 2018. Pre-Procedure Diagnosis Atrial flutter Post-Procedure Diagnosis Successful NELLIE guided synchronized electrical cardioversion Procedure(s) Performed NELLIE guided synchronized electrical cardioversion Disability Representative Andres Line Up Machine Operator(s) None Estimated Blood Loss None Preliminary Findings After informed consent obtained and TIMEOUT performed, patient was sedated and NELLIE performed. No contraindication for synchronized electrical cardioversion was observed and probe was removed. Ptient was repositioned and in same setting underwent synchronized electrical cardioversion using single 100 J biphasic shock with successful conversion. Post procedure patient aroused and tolerated well EKG Sinus rhythm with normal QTc Recommendations Oral anticoagulation and continued med therapy Fluids (cc crystalloids) 800 Specimens None Anesthesia Start 1117 Stop 1150 Complication(s) None Disposition PCU <Electronically signed by Eloy Campos M.D.> Signed: 04/04/18 1152 Signed: The status of this report is Signed * If report status is Draft, the document has not been finalized by the responsible provider. ECHO Interpretation Summary * Name: ROBE SHANKS Study Date: 04/03/2018 03:52 PM BP: 118/84 mmHg * Patient Location: [facility] [place] HR: 78 * : 1955 (M/d/yyyy) Gender: Male Height: 74 in * Age: 62 yrs Ethnicity: [place] Weight: 213 lb * Ordering Physician: Reba Garner * Performed By: Tracy Santana RDCS * * Reason For Study: A-FIB * BSA: 2.2 m2 * -- Conclusions -- * The left ventricle is normal in size. * There is mild concentric left ventricular hypertrophy. * Left ventricular systolic function is normal. * The left ventricular wall motion is normal. * Ejection Fraction = 65-70%. * There is no significant valvular disease Procedure Details * A complete two-dimensional transthoracic echocardiogram was performed (2D, M- mode, Doppler and color flow Doppler). * The study was technically difficult. * A contrast injection of Definity was performed to improve assessment of LV function. * Contrast was injected into an intravenous site in the left arm. * One vial of Definity ultrasound contrast was diluted in normal saline to a total volume of 10 ml. A total of '2.5' ml of solution was administered during imaging. * Lot # [id number] of Definity utilized for procedure. * Expiration date 03/09. Left Ventricle * The left ventricle is normal in size. * There is mild concentric left ventricular hypertrophy. * Ejection Fraction = 65-70%. * Left ventricular systolic function is normal. * The left ventricular wall motion is normal. Right Ventricle * The right ventricle is normal in size and function. Atria * The left atrial size is normal. * Right atrial size is normal. * No ASD detected; PFO is not assessed. Mitral Valve * The mitral valve anatomy is normal. * There is no mitral valve stenosis. * There is trace mitral regurgitation. Tricuspid Valve * The tricuspid valve anatomy is normal. * There is no tricuspid stenosis. * There is trace tricuspid regurgitation. Aortic Valve * The aortic valve is trileaflet. * No hemodynamically significant valvular aortic stenosis. * No aortic regurgitation is present. Pulmonic Valve * The pulmonic valve is not well visualized. Great Vessels * The aortic root is normal size. Pericardium/Pleural * There is no pericardial effusion. Great Vessels * Normal inferior vena cava diameter and respiratory variation suggests normal central venous pressure. Consultations: Cardio Medication Reconciliation New Medications: Apixaban (Eliquis) 5 Mg Tab 5 MG PO BID for 30 Days, #60 TAB Metoprolol Tartrate (Lopressor) (Lopressor) 50 Mg Tab 50 MG PO BID17 for 30 Days, TAB Continued Medications: Gemfibrozil (Lopid) 600 Mg Tab 600 MG PO BID, TAB Oxycodone/Acetaminophen 10MG/325MG (Percocet 10MG/325MG) Tab 1 TAB PO DAILY PRN for Pain, TAB Discontinued Medications: Nebivolol Hcl (Bystolic) 10 Mg Tab 10 MG PO DAILY, TAB Admission Information HPI (per Admitting provider): Patient is a 62-year-old male with the PMH of paroxysmal A Fib, HTN, HLD and chronic back pain who presents with constant palpitations 4 days. Reports constant palpitations and rapid heart rate since last Tuesday. No lightheadedness, visual changes, near syncope, chest pain or shortness of breath. Has a remote history of A Fib and required cardioversion in 2003. Reports one other symptomatic episode of A Fib since then that spontaneously resolved. Is not on anticoagulation. Takes Bystolic for HTN. Denies history of heart disease, CVA or DVT/PE. Has 2-3 drinks a few days a week. No history of thyroid disease. Patient resides in both [place] and [place], and primary care provider is in [place]. Physical Exam (per Admitting): General Appearance: WD/WN, no apparent distress Head: normocephalic, atraumatic Eyes: normal inspection, PERRL, sclerae normal ENT: normal ENT inspection, hearing grossly normal, pharynx normal (mucous membranes moist) Neck: supple, thyroid normal, no JVD, trachea midline Respiratory/Chest: chest non-tender, lungs clear, normal breath sounds, no respiratory distress, no accessory muscle use Cardiovascular: no edema, no murmur, normal peripheral pulses, + tachycardia Abdomen/GI: non tender, soft, no organomegaly Extremities/Musculoskelatal: normal inspection, no calf tenderness, no pedal edema Neurologic/Psych: no motor/sensory deficits, alert, normal mood/affect, oriented x 3 Skin: normal color, warm/dry Hospital Course Patient is a 62-year-old male with the PMH of paroxysmal A Fib, HTN, HLD and chronic back pain who presents with constant palpitations 4 days. A flutter with RVR EKG on admission showed atrial flutter with HR on the 140's Was starting on cardizem drip in the ER that was D/C HR this morning elevated back in the 140's Continue metoprolol 25mg q6hr CHADS2-VASc score is 1 Continue heparin drip Cardiology on board Plan to get NELLIE done today with cardioversion Keep NPO ECHO * The left ventricle is normal in size. * There is mild concentric left ventricular hypertrophy. * Left ventricular systolic function is normal. * The left ventricular wall motion is normal. * Ejection Fraction = 65-70%. * There is no significant valvular disease HTN BP stable On Metoprolol 25mg q6h HLD Continue Gemfibrozil Chronic back pain H/o multiple laminectomies Continue home Percocet daily PRN DVT Ppx: On IV heparin Code status: FULL CODE Dispo: Continue monitor in telemetry Total time spent on discharge = 35 minutes This includes examination of the patient, discharge planning, medication reconciliation, and communication with other providers. Discharge Instructions Discharge Instructions Date of Service Apr 04, 2018. Admission Reason for Admission: Atrial Flutter W/ Rvr Discharge Discharge Diagnosis / Problem: Atrial Flutter with RVR Discharge Goals Goal(s): Decrease discomfort, Improve function, Improve disease control Activity Recommendations Activity Limitations: resume your previous activity (as tolerated) . Instructions / Follow-Up Instructions / Follow-Up Please call your primary care provider to schedule a follow up appointment within 1 week for follow up Follow up with cardiology Dr. Campos within 3 to 4 weeks at [facility]. (The office will contact you, Please call if you don't hear from the office within 1 week) Continue Eliquis twice a day Fall precaution Avoid any high level activity to prevent the risks of Fall. Seek medical attention if you develop any abnormal bleeding such as blood in your stools and your urine. Medication Instructions: Eliquis Your condition is typically treated with an anticoagulant. Anticoagulants will thin your blood to help prevent new clots. * You should take her medication exactly as directed. * Never skip a dose. * Never take a double dose. If you miss a dose, take it as soon as you remember. Call your Primary Care doctor if you experience any of the following: * Swelling or Pain in your leg * Sudden, continuous pain deep in a muscle * Pain that worsens when you are active or when you stand still for a long time * Chest Pain * Sudden Shortness of Breath * Rapid or pounding heart beat * Fainting * Dizziness * Cough with blood or bloody sputum * Sweating more than normal * Bruises * Heavy or uncontrolled bleeding * Blood in your urine, stool or vomit * Black or tarry stools Follow Up: It is important for you to keep your follow up appointments with your medical provider. Current Hospital Diet Patient's current hospital diet: AHA Diet (Heart Healthy) Discharge Diet Recommended Diet: AHA Diet (Heart Healthy) Pending Studies Studies pending at discharge: no Medical Emergencies . Who to Call and When: Medical Emergencies: If at any time you feel your situation is an emergency, please call 911 immediately. . Non-Emergent Contact Non-Emergency issues call your: Primary Care Provider, Disability Representative Call Non-Emergent contact if: you have any medication questions . . "Provider Documentation" section prepared by Afshin Mackenzie. .
== END 2018-04-04 16:07 | disposition home or self-care (01) | DRG 310 ==
LOC: C.EDB 11:25 → C.2E 13:03 → ENRESERV 13:09
PROVIDERS: ADMIT Internal Medicine; ATTEND Internal Medicine
PROC: 5A2204Z Restoration of Cardiac Rhythm, Single (ICD-10-PCS; principal; 2018-04-04 11:14)
DX: I48.0 Paroxysmal atrial fibrillation (principal); I48.1 Persistent atrial fibrillation; E78.5 Hyperlipidemia, unspecified; I48.92 Unspecified atrial flutter; I10 Essential (primary) hypertension; M54.9 Dorsalgia, unspecified